=== PATIENT | female | born 1990 | race American Indian/Alaskan Native ===

== ENCOUNTER 2019-08-13 14:46 | Emergency (ER) | payer SELFPAY ==
[2019-08-13 15:30] LABS: Bilirubin,Urine NEG (Negative); Blood,Urine NEG (Negative); Color,Urine Yellow (Yellow); Mucus,Urine 1+ /HPF; Protein,Urine <15 mg/dL mg/dL (Negative); Urobilinogen,Urine < 2.0 mg/dL (<2.0)
[2019-08-13 15:39] LABS: Alanine Aminotransferase 28 units/L (7-56); Albumin 4.4 g/dL (3.9-5); BUN/Creatinine Ratio 24; Blood Urea Nitrogen 17 mg/dL (7-17); Calcium 9.2 mg/dL (8.4-10.2); Hemolysis Index 6
[2019-08-13 15:42] LABS: HCG Qualitative,Urine Negative (Negative)
[2019-08-13 16:27] LABS: Basophils % (Auto) 0.6 % (0.0-1.8); Eosinophils % (Auto) 0.8 % (0.0-4.3); Hematocrit 33.4 % (30.3-42.9); Hemoglobin 11.4 gm/dl (10.1-14.3); Lymphocytes # (Auto) 1.7 K/mm3 (1.2-5.4); Lymphocytes % (Auto) 30.8 % (13.4-35.0); Mean Corpuscular HGB Conc 34 % (30-34); Mean Corpuscular Volume 87 fl (79-97); Monocytes # (Auto) 0.5 K/mm3 (0.0-0.8); Monocytes % (Auto) 8.1 % (0.0-7.3); Platelet Count 158 K/mm3 (140-440); Red Blood Count 3.84 M/mm3 (3.65-5.03); Red Cell Distribution Width 12.1 % (13.2-15.2)
[2019-08-13] MEDS ORDERED: ONDANSETRON 4 MG ODT TAB PO ONE (18:53)
--- NOTE | 2019-08-13 18:58 | Emergency Department Report ---
HPI - General Chief Complaint: Nausea/Vomiting/Diarrhea Time Seen by Provider: 08/13/19 18:22 - HPI HPI: 29-year-old -[place] female presents to the emergency department with complaint of a 2 day history of some nausea and vomiting, indigestion and feeling bloated. Patient says that she tried some [place] but she feels that she vomited this up. She denies any past medical history. No recent travel or sick contacts at home. She denies any fever, dysuria, vaginal bleeding or discharge, back pain. No PCP. ED Past Medical Hx - Past Medical History Previous Medical History?: No - Surgical History Past Surgical History?: No - Social History Smoking Status: Never Smoker Substance Use Type: None - Medications Home Medications: Home Medications Medication Instructions Recorded Confirmed Last Taken Type Famotidine [Pepcid] 20 mg PO BID #10 tablet 08/13/19 Unknown Rx Ondansetron [Zofran ODT TAB] 4 mg PO Q8H PRN #15 tab.rapdis 08/13/19 Unknown Rx ED Review of Systems ROS: Stated complaint: N/V/ABD PAIN/PSYCH MEDS Other details as noted in HPI Comment: All other systems reviewed and negative Constitutional: denies: chills, fever Respiratory: denies: shortness of breath Cardiovascular: denies: chest pain Gastrointestinal: abdominal pain, nausea, vomiting Genitourinary: denies: dysuria, discharge Musculoskeletal: denies: back pain Neurological: denies: headache, weakness Physical Exam - Physical Exam Vital Signs: Vital Signs 08/13/19 14:57 Temperature 98.4 F Pulse Rate 95 H Respiratory 20 Rate Blood Pressure 118/85 O2 Sat by Pulse 98 Oximetry Physical Exam: GENERAL: The patient is well-developed well-nourished. HENT: Normocephalic. Atraumatic. Patient has moist mucous membranes. EYES: Extraocular motions are intact. NECK: Supple. Trachea is midline. CHEST/LUNGS: Clear to auscultation. There is no respiratory distress noted. HEART/CARDIOVASCULAR: Regular. There is no tachycardia. There is no murmur. ABDOMEN: Abdomen is soft, nontender. Patient has normal bowel sounds. There is no abdominal distention. SKIN: Skin is warm and dry. NEURO: The patient is awake, alert, and oriented. The patient is cooperative. Normal speech. MUSCULOSKELETAL: There is no tenderness or deformity. There is no evidence of acute injury. ED Course Vital Signs 08/13/19 14:57 Temperature 98.4 F Pulse Rate 95 H Respiratory 20 Rate Blood Pressure 118/85 O2 Sat by Pulse 98 Oximetry ED Medical Decision Making - Lab Data Result diagrams: 08/13/19 15:08 08/13/19 15:08 - Medical Decision Making This patient presents to the emergency department with the claim/complaint that she has placed a nail inside of her vagina. At first, due to the patient's p sychiatric history and history of autism, I was not sure if this was in fact true or some type of delusion. However a pelvic examination was done and a thumb tack was found within the vagina. There were no signs of any laceration, abrasion, vaginal bleeding. I did a pelvic x-ray afterwards and there were no foreign radiopaque foreign bodies found. Vital signs are stable throughout her ED course. The patient be discharged home. She was instructed not to put any further foreign bodies within the vagina. She was given referrals for [facility]. Critical Care Time: No Critical care attestation.: If time is entered above; I have spent that time in minutes in the direct care of this critically ill patient, excluding procedure time. ED Disposition Clinical Impression: Bloating Nausea and vomiting Qualifiers: Vomiting type: unspecified Vomiting Intractability: unspecified Qualified Code(s): R11.2 - Nausea with vomiting, unspecified Disposition: DC-01 TO HOME OR SELFCARE Is pt being admited?: No Condition: Stable Instructions: Acute Nausea and Vomiting (ED), Gas and Bloating (ED) Additional Instructions: Please follow-up with a primary care physician in the next few days. Return to the emergency Department with any worsening of your symptoms or any acute distre ss. Prescriptions: Famotidine [Pepcid] 20 mg PO BID #10 tablet Ondansetron [Zofran ODT TAB] 4 mg PO Q8H PRN #15 tab.rapdis PRN Reason: Nausea Referrals: SAVANNA BLAKE MD [Staff Physician] - 2-3 Days () [facility] [Outside] - 2-3 Days Time of Disposition: 18:57
[2019-08-13 19:26] VITALS: BP 124/88
== END 2019-08-13 19:30 | disposition home or self-care (01) ==
LOC: ED 14:46
DX: R14.0 Abdominal distension (gaseous) (principal); R11.2 Nausea with vomiting, unspecified; Z79.899 Other long term (current) drug therapy
CPT/HCPCS: 36415; 80053; 81001; 81025; 83690; 85025; Q0162